=== PATIENT | female | born 1950 | race American Indian/Alaskan Native ===

== ENCOUNTER 2016-08-11 12:43 | Emergency (ER) | payer MEDICARE, OTHER ==
--- NOTE | 2016-08-11 15:04 | Cat Scan Report ---
CT HEAD WITHOUT CONTRAST INDICATION: Fall, LOC. COMPARISON: None similar. FINDINGS: Noncontrast head CT demonstrates symmetric, age-appropriate ventricles and sulci without acute or recent infarct, hemorrhage, mass effect or midline shift. No abnormal extra-axial fluid collections. Mild periventricular and few white matter hypodense small vessel ischemic disease. Posterior fossa structures and basilar cisterns appear within normal limits. Bilateral cataract surgery. Partially empty sella. Left ethmoid air cell opacification anteriorly. Clear remainder imaged paranasal sinuses and mastoid air cells. Intact calvarium. High scalp hematoma/soft tissue swelling noted towards the vertex posteriorly. Few radiopaque dental material incidentally noted. CONCLUSION: No acute intracranial CT abnormality with various incidental findings, as described. Thank you for the opportunity to participate in this patient's care.
--- NOTE | 2016-08-11 15:09 | Cat Scan Report ---
CT CERVICAL SPINE WITHOUT CONTRAST INDICATION: Fall, LOC. COMPARISON: None similar. FINDINGS: Noncontrast axial, sagittal and coronal CT reconstructions of the cervical spine demonstrate normal visualized intracranial appearance. Streak artifact from few radiopaque dental material noted. Assessment of the spinal canal from C4 inferiorly also compromised due to artifact from shoulder soft tissues. Clear included sinuses and mastoid air cells. Symmetric occipital condyles. Normal anterior and posterior arches of C1. Intact craniocervical articulation with normal predental space, prevertebral soft tissues, vertebral body stature, alignment and posterior elements. Mild degenerative spurring and slight disc narrowing at few levels. No large disc protrusion at any level suspected. Normal included thyroid. Clear visualized lung apices. CONCLUSION: No acute cervical spine CT abnormality with few incidental findings, as above. A small cervical rib on the right also incidentally noted. Please correlate. Thank you for the opportunity to participate in this patient's care.
[2016-08-11] MEDS ORDERED: NORCO 5/325 ONE (15:18)
[2016-08-11] MEDS ORDERED: NORCO 5/325 PO ONE (15:20)
[2016-08-11 15:36] VITALS: BP 160/75
--- NOTE | 2016-08-11 15:43 | Emergency Department Report ---
HPI - General Chief Complaint: Fall Time Seen by Provider: 08/11/16 13:22 - HPI HPI: Chief complaint: Fall head injury HPI: Patient states she was in a fast food restaurant and the floor was slippery and she grabbed Herself on the chair and then woke up on the floor. Bystanders states she was out for approximately 60 seconds. Patient has a hematoma to the back of her scalp where she hit the back of her head. Patient denies any neck pain. No numbness or weakness. Mode of arrival: EMS Source: Patient Began: Occurred prior to admission Duration: 60 seconds Context: Patient with a history of arthritis, congestive heart failure, reactive airway disease, diabetes type 2, GERD and hypertension. Quality: Dull Severity: out of 10 Improved with: Nothing Worsened with: Scalp is tender to palpation Associated signs and symptoms: No nausea vomiting. Headache. ED Past Medical Hx - Past Medical History Hx Hypertension: Yes Hx Congestive Heart Failure: Yes Hx Diabetes: Yes (II) Hx GERD: Yes Hx Arthritis: Yes (spine) Hx COPD: Yes Additional medical history: High cholesterol, gout - Surgical History Additional Surgical History: Vaginal hysterectomy, Lysis of adhesions x 5, Left breast biopsy 2002 - Social History Smoking Status: Never Smoker Substance Use Type: None - Medications Home Medications: Home Medications Medication Instructions Recorded Confirmed Last Taken Type Carvedilol [Coreg] 25 mg PO BID 10/02/13 06/02/16 06/01/16 History Simvastatin [Zocor TAB] 40 mg PO ONCE 10/02/13 06/02/16 06/01/16 History Spironolactone [Aldactone] 25 mg PO ONCE 10/02/13 06/02/16 06/01/16 History hydrALAZINE [Apresoline TAB] 25 mg PO TID 10/02/13 06/02/16 06/01/16 History Bimatoprost [Lumigan 0.01%] 1 drop OU DAILY 06/02/16 06/02/16 06/01/16 History prednisoLONE ACETATE 1% [Pred 1 drop OD BID 06/02/16 06/02/16 06/01/16 History Forte 1%] traMADol [Ultram 50 MG tab] 50 mg PO Q6HR PRN #14 tablet 08/11/16 Unknown Rx ED Review of Systems ROS: Stated complaint: FELL FROM STANDING POSITION Other details as noted in HPI ROS Constitutional: No fever ENT: No uri symptoms Cardiovascular: No chest pain Respiratory: No sob or cough GI: No nausea vomiting or diarrhea : No dysuria frequency or urgency, Skin: No rash Neuro: No focal weakness or numbness Psych: No depression Bon/lymph: No edema Physical Exam - Physical Exam Vital Signs: Vital Signs 08/11/16 08/11/16 13:03 13:11 Temperature 98.3 F Pulse Rate 73 Respiratory 18 18 Rate Blood Pressure 161/66 O2 Sat by Pulse 99 98 Oximetry Physical Exam: GENERAL: The patient is well-developed well-nourished . HEENT: Normocephalic. Palpable hematoma in the posterior scalp. No bony deformity. Extraocular motions are intact. Patient has moist mucous membranes. TMs within normal limits. NECK: Supple. No meningitic signs are noted. There is no adenopathy noted. CHEST/LUNGS: Clear to auscultation. There is no respiratory distress noted. HEART/CARDIOVASCULAR: Regular. There is no tachycardia. There is no gallop rub or murmur. ABDOMEN: Abdomen is soft, nontender. Patient has normal bowel sounds. There is no abdominal distention. SKIN: There is no rash. There is no edema. There is no diaphoresis. NEURO: The patient is awake, alert, and oriented. The patient is cooperative. The patient has no focal neurologic deficits. The patient has normal speech. MUSCULOSKELETAL: There is no tenderness or deformity. There is no limitation range of motion. There is no evidence of acute injury. ED Course Vital Signs 08/11/16 08/11/16 13:03 13:11 Temperature 98.3 F Pulse Rate 73 Respiratory 18 18 Rate Blood Pressure 161/66 O2 Sat by Pulse 99 98 Oximetry - Reevaluation(s) Reevaluation #1: 08/11/16 Patient medicated with hydrocodone 5 by mouth here in the emergency department. ED Medical Decision Making - Radiology Data Radiology results: report reviewed (CT head and C-spine showed no acute process except for scalp hematoma.) Critical care attestation.: If time is entered above; I have spent that time in minutes in the direct care of this critically ill patient, excluding procedure time. ED Disposition Clinical Impression: Cerebral concussion Qualifiers: Encounter type: initial encounter Loss of consciousness presence/duration: with LOC of 30 min or less Qualified Code(s): S06.0X1A - Concussion with loss of consciousness of 30 minutes or less, initial encounter Disposition: DISCHARGED TO HOME OR SELFCARE Is pt being admited?: No Does the pt Need Aspirin: No Condition: Stable Instructions: Concussion (ED), Scalp Contusion in Adults (ED) Prescriptions: traMADol [Ultram 50 MG tab] 50 mg PO Q6HR PRN #14 tablet PRN Reason: Pain Referrals: PRIMARY CARE, [Primary Care Provider] - 3-5 Days Time of Disposition: 15:39
== END 2016-08-11 17:10 | disposition home or self-care (01) ==
LOC: ED 12:43
DX: S06.0X1A Concussion with loss of consciousness of 30 minutes or less, initial encounter (principal); I10 Essential (primary) hypertension; I50.9 Heart failure, unspecified; E11.9 Type 2 diabetes mellitus without complications; K21.9 Gastro-esophageal reflux disease without esophagitis; J44.9 Chronic obstructive pulmonary disease, unspecified; E78.00 Pure hypercholesterolemia, unspecified; M10.9 Gout, unspecified; M47.9 Spondylosis, unspecified; Z90.710 Acquired absence of both cervix and uterus; Z79.899 Other long term (current) drug therapy; Z98.890 Other specified postprocedural states; Z88.8 Allergy status to other drugs, medicaments and biological substances; W01.0XXA Fall on same level from slipping, tripping and stumbling without subsequent striking against object, initial encounter; Y93.89 Activity, other specified; Y99.8 Other external cause status; Y92.511 Restaurant or cafe as the place of occurrence of the external cause
CPT/HCPCS: 70450; 72125

== ENCOUNTER 2016-08-12 02:55 | Emergency (ER) | payer MEDICARE, OTHER ==
--- NOTE | 2016-08-12 08:59 | Emergency Department Report ---
HPI - General Chief Complaint: Headache Time Seen by Provider: 08/12/16 08:06 - HPI HPI: This is a 66-year-old Afro-[place]an female presents to the emergency department with complaint of dizziness and feeling like she is going to pass out. The patient was seen here yesterday at [facility] post ground-level fall after she slipped on a wet floor at a fast food restaurant and hit her head. Allegedly there was some loss of consciousness of the patient says she does not remember much until she was on the way to the hospital with EMS. At that time she had a CT of the head and cervical spine. She was diagnosed with a scalp contusion and concussion. Patient says that she tried to go home and rest but every time she turns her head or moves around that she feels like she is going to pass out. She had been taking some tramadol for her discomfort that was prescribed yesterday. She has a past nuchal history of hypertension, prediabetes and elevated cholesterol. Her primary care doctor is at [facility]. No recent travel or sick contacts at home. She denies any vision change, fever, slurred speech or any neurological deficits. ED Past Medical Hx - Past Medical History Previous Medical History?: Yes Hx Hypertension: Yes Hx Congestive Heart Failure: Yes Hx Diabetes: Yes (Not taking meds at present) Hx GERD: Yes Hx Arthritis: Yes (spine) Hx COPD: Yes Additional medical history: High cholesterol, gout - Surgical History Past Surgical History?: Yes Additional Surgical History: Vaginal hysterectomy, Lysis of adhesions x 5, Left breast biopsy 2002 - Social History Smoking Status: Never Smoker Substance Use Type: None - Medications Home Medications: Home Medications Medication Instructions Recorded Confirmed Last Taken Type Carvedilol [Coreg] 25 mg PO BID 10/02/13 06/02/16 06/01/16 History Simvastatin [Zocor TAB] 40 mg PO ONCE 10/02/13 06/02/16 06/01/16 History Spironolactone [Aldactone] 25 mg PO ONCE 10/02/13 06/02/16 06/01/16 History hydrALAZINE [Apresoline TAB] 25 mg PO TID 10/02/13 06/02/16 06/01/16 History Bimatoprost [Lumigan 0.01%] 1 drop OU DAILY 06/02/16 06/02/16 06/01/16 History prednisoLONE ACETATE 1% [Pred 1 drop OD BID 06/02/16 06/02/16 06/01/16 History Forte 1%] traMADol [Ultram 50 MG tab] 50 mg PO Q6HR PRN #14 tablet 08/11/16 Unknown Rx Meclizine [Antivert] 25 mg PO TID PRN #14 tablet 08/12/16 Unknown Rx ED Review of Systems ROS: Stated complaint: HEAD LAC Other details as noted in HPI Comment: All other systems reviewed and negative Constitutional: denies: chills, fever Eyes: denies: eye pain, eye discharge, vision change ENT: as per HPI Respiratory: denies: cough, shortness of breath, wheezing Cardiovascular: denies: chest pain, palpitations Genitourinary: denies: urgency, dysuria, discharge Musculoskeletal: denies: back pain, joint swelling, arthralgia Skin: denies: rash, lesions Neurological: headache, vertigo, other (Dizziness). denies: weakness, numbness , paresthesias Physical Exam - Physical Exam Vital Signs: Vital Signs 08/12/16 03:21 Temperature 98.5 F Pulse Rate 84 Respiratory 18 Rate Blood Pressure 145/82 O2 Sat by Pulse 98 Oximetry Physical Exam: GENERAL: The patient is well-developed well-nourished. HEENT: Normocephalic. Extraocular motions are intact but worsens the patient's symptoms. Patient has moist mucous membranes. Pupils equal reactive to light bilaterally. There is some fatigable horizontal nystagmus. NECK: Supple. Trachea is midline. CHEST/LUNGS: Clear to auscultation. There is no respiratory distress noted. HEART/CARDIOVASCULAR: Regular. There is no tachycardia. There is no gallop rub or murmur. ABDOMEN: Abdomen is soft, nontender. Patient has normal bowel sounds. There is no abdominal distention. SKIN: There is no rash. There is no edema. There is no diaphoresis. NEURO: The patient is awake, alert, and oriented. The patient is cooperative. The patient has no focal neurologic deficits. The patient has normal speech. Cranial nerves II through XII grossly intact. No dysmetria. No pronator drift. MUSCULOSKELETAL: There is no tenderness or deformity. There is no limitation range of motion. There is no evidence of acute injury. Muscle strength 5 out of 5 upper and lower extremity bilaterally. ED Course Vital Signs 08/12/16 03:21 Temperature 98.5 F Pulse Rate 84 Respiratory 18 Rate Blood Pressure 145/82 O2 Sat by Pulse 98 Oximetry ED Medical Decision Making - Lab Data Result diagrams: 08/12/16 09:00 08/12/16 09:00 - EKG Data -: EKG Interpreted by Me EKG shows normal: sinus rhythm, axis, intervals, QRS complexes Rate: normal - EKG Data When compared to previous EKG there are: no significant change Interpretation: unchanged when compared t (05/31/16), other - Medical Decision Making This is a 66-year-old Afro-S[place]an female presents emergency Department with what appears to be some nonspecific dizziness and vertigo as part of a postconcussive syndrome. Patient was seen here yesterday and had a CT of the head that was negative for any bleed, shift, mass or fracture at that time. She came back to be seen after she was having the dizziness and vertigo like symptoms worsen with certain movements and moving her head. There is been no focal, motor or sensory deficits. Cranial nerves are intact. Patient did have some worsening of her dizziness with extraocular motion testing and some fatigable horizontal nystagmus. For this reason the patient was given some Antivert. An EKG was checked that was unchanged from her previous EKG in May 2016 and did not show any signs of ST elevation MS or dysrhythmia. Patient's labs are unremarkable including no leukocytosis, electrolyte abnormalities, renal insufficiency or glucose abnormalities. Patient was reevaluated and her symptoms have greatly improved if not resolved. She will be given a referral for a local neurologist, as well as the encouragement to follow-up with her primary care doctor at [facility], and she will return to the ER with any worsening of her symptoms or any acute distress. - Differential Diagnosis postconcussive syndrome, vertigo, TIA, Mnire's disease Critical Care Time: No Critical care attestation.: If time is entered above; I have spent that time in minutes in the direct care of this critically ill patient, excluding procedure time. ED Disposition Clinical Impression: Postconcussive syndrome, Vertigo, Dizziness Disposition: DISCHARGED TO HOME OR SELFCARE Is pt being admited?: No Does the pt Need Aspirin: No Condition: Stable Instructions: Post Concussion Syndrome (ED), Vertigo (ED), Dizziness (ED) Additional Instructions: Please follow-up with your primary care doctor in the next few days. I have also given you a referral for a local neurologist to follow-up regarding your postconcussive syndrome and your dizziness. Return to the emergency department with any worsening of your symptoms or any acute distress. Prescriptions: Meclizine [Antivert] 25 mg PO TID PRN #14 tablet PRN Reason: Vertigo Referrals: PRIMARY CAREMD [Primary Care Provider] - 3-5 Days MUSA BAJWA MD [Staff Physician] - 3-5 Days Time of Disposition: 10:49
[2016-08-12] MEDS: ANTIVERT PO ONE (09:00)
[2016-08-12 09:11] LABS: Basophils % (Auto) 0.2 % (0.0-1.8); Eosinophils % (Auto) 1.6 % (0.0-4.3); Hematocrit 37.8 % (30.3-42.9); Hemoglobin 12.1 gm/dl (10.1-14.3); Mean Corpuscular HGB Conc 32 % (30-34); Mean Corpuscular Volume 81 fl (79-97); Platelet Count 184 K/mm3 (140-440); Red Blood Count 4.68 M/mm3 (3.65-5.03); Red Cell Distribution Width 16.3 % (13.2-15.2); White Blood Count 7.6 K/mm3 (4.5-11.0)
[2016-08-12 09:12] LABS: Mean Corpuscular Hemoglobin 26 pg (28-32)
[2016-08-12 09:49] LABS: Anion Gap 18 mmol/L; BUN/Creatinine Ratio 16.66; Blood Urea Nitrogen 15 mg/dL (7-17); Calcium 9.6 mg/dL (8.4-10.2); Carbon Dioxide 27 mmol/L (22-30); Chloride 100.7 mmol/L (98-107); Glucose 121 mg/dL (65-100); Potassium 4.4 mmol/L (3.6-5.0); Sodium 141 mmol/L (137-145)
[2016-08-12 10:54] VITALS: BP 134/88
== END 2016-08-12 10:54 | disposition home or self-care (01) ==
LOC: ED 02:55
DX: F07.81 Postconcussional syndrome (principal); R42 Dizziness and giddiness; I10 Essential (primary) hypertension; I50.9 Heart failure, unspecified; E11.9 Type 2 diabetes mellitus without complications; K21.9 Gastro-esophageal reflux disease without esophagitis; M19.90 Unspecified osteoarthritis, unspecified site; J44.9 Chronic obstructive pulmonary disease, unspecified; E78.00 Pure hypercholesterolemia, unspecified; M10.9 Gout, unspecified; Z90.710 Acquired absence of both cervix and uterus
CPT/HCPCS: 36415; 80048; 84443; 84484; 85025; 93005; 93010; 99284

== ENCOUNTER 2020-01-23 21:20 | Emergency (ER) | payer MEDICARE ==
[2020-01-23 23:37] VITALS: BP 163/75
[2020-01-24] MEDS ORDERED: KETOROLAC 30 MG/1 ML INJ IM ONE (04:46)
--- NOTE | 2020-01-24 04:50 | Emergency Department Report ---
ED Lower Extremity HPI - General Chief Complaint: Extremity Injury, Lower Stated Complaint: RT KNEE PAIN/SWELLING Time Seen by Provider: 01/24/20 04:39 Source: patient Mode of arrival: Ambulatory Limitations: Physical Limitation - History of Present Illness Initial Comments: This is a 69-year-old female with history of hypertension hyperlipidemia who pr esents with bilateral knee pain for several days. Pain was worse after a more strenuous day on the job. 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 She awakened the next day with severe right lateral knee pain. She also had left lateral knee pain. Several years ago she required injection in her knee for relief of pain. She wanted to ensure that she did not have gout. No direct injury. Denies fever. Denies recent infection. No previous history of gout. MD Complaint: other (Bilateral knee pain) -: days(s) (2 days) Injury: Knee: Right, Left Severity: moderate Worsens With: weight bearing Context: other (Increase physical activity) Associated Symptoms: swelling - Related Data Home Medications Medication Instructions Recorded Confirmed Last Taken Simvastatin (Nf) [Zocor TAB] 40 mg PO ONCE 10/02/13 06/02/16 06/01/16 Spironolactone [Aldactone] 25 mg PO ONCE 10/02/13 06/02/16 06/01/16 carvediloL [Coreg] 25 mg PO BID 10/02/13 06/02/16 06/01/16 hydrALAZINE [Apresoline TAB] 25 mg PO TID 10/02/13 06/02/16 06/01/16 Bimatoprost [Lumigan 0.01%] 1 drop OU DAILY 06/02/16 06/02/16 06/01/16 prednisoLONE ACETATE 1% [Pred 1 drop OD BID 06/02/16 06/02/16 06/01/16 Forte 1%] Previous Rx's Medication Instructions Recorded Last Taken Type traMADoL [Ultram 50 MG tab] 50 mg PO Q6HR PRN #14 tablet 08/11/16 Unknown Rx Meclizine [Antivert] 25 mg PO TID PRN #14 tablet 08/12/16 Unknown Rx traMADoL [Ultram 50 MG tab] 50 mg PO Q6HR PRN #15 tablet 07/21/20 Unknown Rx Allergies Allergy/AdvReac Type Severity Reaction Status Date / Time lisinopril Allergy Swelling Verified 06/02/16 07:10 metformin Allergy Unknown Verified 01/23/20 23:38 ED Review of Systems ROS: Stated complaint: RT KNEE PAIN/SWELLING Other details as noted in HPI Constitutional: denies: fever, malaise Respiratory: denies: cough Cardiovascular: denies: chest pain Gastrointestinal: denies: abdominal pain, nausea Musculoskeletal: joint swelling, arthralgia Skin: denies: rash, lesions ED Past Medical Hx - Past Medical History Previous Medical History?: Yes Hx Hypertension: Yes Hx Congestive Heart Failure: Yes Hx Diabetes: Yes (not on meds at present due lower A1C) Hx GERD: Yes Hx Arthritis: Yes (spine) Hx COPD: Yes Additional medical history: High cholesterol, gout - Surgical History Past Surgical History?: Yes Additional Surgical History: Vaginal hysterectomy, Lysis of adhesions x 5, Left breast biopsy 2002 - Social History Smoking Status: Never Smoker Substance Use Type: None - Medications Home Medications: Home Medications Medication Instructions Recorded Confirmed Last Taken Type Simvastatin (Nf) [Zocor TAB] 40 mg PO ONCE 10/02/13 06/02/16 06/01/16 History Spironolactone [Aldactone] 25 mg PO ONCE 10/02/13 06/02/16 06/01/16 History carvediloL [Coreg] 25 mg PO BID 10/02/13 06/02/16 06/01/16 History hydrALAZINE [Apresoline TAB] 25 mg PO TID 10/02/13 06/02/16 06/01/16 History Bimatoprost [Lumigan 0.01%] 1 drop OU DAILY 06/02/16 06/02/16 06/01/16 History prednisoLONE ACETATE 1% [Pred 1 drop OD BID 06/02/16 06/02/16 06/01/16 History Forte 1%] traMADoL [Ultram 50 MG tab] 50 mg PO Q6HR PRN #14 tablet 08/11/16 Unknown Rx Meclizine [Antivert] 25 mg PO TID PRN #14 tablet 08/12/16 Unknown Rx traMADoL [Ultram 50 MG tab] 50 mg PO Q6HR PRN #15 tablet 01/24/20 Unknown Rx ED Physical Exam - General Limitations: Physical Limitation General appearance: alert, in no apparent distress - Head Head exam: Present: atraumatic, normocephalic - Eye Eye exam: Present: normal appearance. Absent: scleral icterus, conjunctival injection - ENT ENT exam: Present: mucous membranes moist - Neck Neck exam: Present: normal inspection, full ROM - Respiratory Respiratory exam: Absent: respiratory distress - Expanded Lower Extremity Exam Left Hip exam: Present: normal inspection, full ROM Upper Leg exam: Present: normal inspection Knee exam: Present: tenderness, swelling. Absent: abrasion, laceration, ecchymosis, deformity, crepidus, dislocation, erythema, effusion, pain/laxity with valgus, pain/laxity with varus Lower Leg exam: Present: normal inspection, full ROM. Absent: tenderness Ankle exam: Present: normal inspection, full ROM. Absent: tenderness, swelling Foot/Toe exam: Present: normal inspection, full ROM Right Hip exam: Present: normal inspection, full ROM Upper Leg exam: Present: normal inspection, full ROM Knee exam: Present: full ROM, tenderness, swelling. Absent: abrasion, laceration, ecchymosis, deformity, crepidus, dislocation, erythema, pain/laxity with valgus, pain/laxity with varus Lower Leg exam: Present: normal inspection, full ROM. Absent: tenderness, swelling, abrasion Ankle exam: Present: normal inspection, full ROM Foot/Toe exam: Present: normal inspection, full ROM ED Course Vital Signs 01/23/20 23:34 Temperature 98.7 F Pulse Rate 76 Respiratory 16 Rate Blood Pressure 163/75 O2 Sat by Pulse 99 Oximetry ED Lower Extremity MDM - Radiology Data Radiology results: report reviewed, image reviewed Bilateral knee radiographs: Mild tricompartmental degenerative osteoarthrosis of both knees left worse than right no fracture appreciated no significant knee effusion Radiologist impression - Medical Decision Making This is a 69-year-old female who presents with atraumatic bilateral knee swelling. Clinical impression DJD osteoarthritis. Prescribed tramadol referred to orthopedic surgeon Critical care attestation.: If time is entered above; I have spent that time in minutes in the direct care of this critically ill patient, excluding procedure time. ED Disposition Clinical Impression: Degenerative joint disease of right knee, Left knee DJD Disposition: TO HOME OR SELFCARE Is pt being admited?: No Does the pt Need Aspirin: No Condition: Stable Instructions: Osteoarthritis (ED) Prescriptions: traMADoL [Ultram 50 MG tab] 50 mg PO Q6HR PRN #15 tablet PRN Reason: Pain Referrals: ADELITA ECHOLS MD [Staff Physician] - 3-5 Days Forms: Work/School Release Form(ED)
--- NOTE | 2020-01-24 05:49 | XRay Report ---
Knee bilateral 6 views INDICATION: Bilateral knee pain IMPRESSION: Mild tricompartmental degenerative osteoarthrosis of both knees, left worse than right. N o fracture appreciated. No significant knee effusion. Signer Name: Ever Ruiz MD Signed: 01/24/2020 5:45 AM Workstation Name: [id number]
== END 2020-01-24 06:41 | disposition home or self-care (01) ==
LOC: ED 21:20
DX: M17.0 Bilateral primary osteoarthritis of knee (principal); I11.0 Hypertensive heart disease with heart failure; I50.9 Heart failure, unspecified; I10 Essential (primary) hypertension; M13.88 Other specified arthritis, other site; K21.9 Gastro-esophageal reflux disease without esophagitis; J44.9 Chronic obstructive pulmonary disease, unspecified; E78.00 Pure hypercholesterolemia, unspecified; M10.9 Gout, unspecified; Z90.710 Acquired absence of both cervix and uterus; Z79.899 Other long term (current) drug therapy; Z88.6 Allergy status to analgesic agent
CPT/HCPCS: 73562; 96372; 99283; J1885

== ENCOUNTER 2021-04-07 18:24 | Emergency (ER) | payer MEDICARE ==
[2021-04-07 18:46] VITALS: BP 151/81
--- NOTE | 2021-04-07 19:31 | Emergency Department Report ---
ED General Adult HPI - General Chief complaint: Skin/Abscess/Foreign Body Stated complaint: POSS SPIDER BITE/REDNESS/ITCH/PAIN Source: patient Mode of arrival: Ambulatory Limitations: No Limitations - History of Present Illness Initial comments: Patient is a 70-year-old -[place] female with a history of [id number] diabetes, CHF, osteoarthritis, GERD, COPD, hyperlipidemia and hypertension who presents to the ED with acute onset persistent itchy erythematous maculopapular painful rash on right upper quadrant abdominal area for the last 2 days after being bitten by unknown insect 2 days ago. Patient states that the area was initially very warm, severely painful and itchy 24 hours ago and she decided come to the ED today for evaluation thinking that it m ay have been a spider bite although she did not identify or see any insect biting her at the time. 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 Patient denies swollen lips or tongue, dysphagia, dysphonia, nausea and vomiting, diarrhea, abdominal pain, chest pain or shortness of breath, fever, chills, dizziness or syncope. MD Complaint: Itchy erythematous painful rash on RUQ abdominal area -: Sudden, days(s) (2) Location: abdomen (RUQ abdominal area) Radiation: non-radiation Severity scale (0 -10): 5 Quality: burning, aching, sharp, other (Itchy) Consistency: constant Improves with: none Worsens with: none Associated Symptoms: denies other symptoms, malaise, rash (Erythematous maculopapular rash with localized pain and mild swelling on right upper quadrant abdominal.). denies: confusion, chest pain, cough, diaphoresis, fever/chills, headaches, loss of appetite, nausea/vomiting, seizure, shortness of breath, syncope, weakness Treatments Prior to Arrival: none - Related Data Home Medications Medication Instructions Recorded Confirmed Last Taken Simvastatin (Nf) [Zocor TAB] 40 mg PO ONCE 10/02/13 06/02/16 06/01/16 Spironolactone [Aldactone] 25 mg PO ONCE 10/02/13 06/02/16 06/01/16 carvediloL [Coreg] 25 mg PO BID 10/02/13 06/02/16 06/01/16 hydrALAZINE [Apresoline TAB] 25 mg PO TID 10/02/13 06/02/16 06/01/16 Bimatoprost [Lumigan 0.01%] 1 drop OU DAILY 06/02/16 06/02/16 06/01/16 prednisoLONE ACETATE 1% [Pred 1 drop OD BID 06/02/16 06/02/16 06/01/16 Forte 1%] Previous Rx's Medication Instructions Recorded Last Taken Type traMADoL [Ultram 50 MG tab] 50 mg PO Q6HR PRN #14 tablet 08/11/16 Unknown Rx Meclizine [Antivert] 25 mg PO TID PRN #14 tablet 08/12/16 Unknown Rx traMADoL [Ultram 50 MG tab] 50 mg PO Q6HR PRN #15 tablet 01/24/20 Unknown Rx Ibuprofen [Motrin] 800 mg PO Q8HR PRN #20 tablet 04/07/21 Unknown Rx Sulfamethoxazole/Trimethoprim 1 each PO Q12H #20 tablet 04/07/21 Unknown Rx [Bactrim DS TAB] predniSONE [Deltasone] 40 mg PO QDAY #10 tab 04/07/21 Unknown Rx Allergies Allergy/AdvReac Type Severity Reaction Status Date / Time lisinopril Allergy Swelling Verified 06/02/16 07:10 metformin Allergy Unknown Verified 01/23/20 23:38 ED Review of Systems ROS: Stated complaint: POSS SPIDER BITE/REDNESS/ITCH/PAIN Other details as noted in HPI Constitutional: denies: chills, fever Eyes: denies: eye pain, eye discharge, vision change ENT: denies: ear pain, throat pain Respiratory: denies: cough, shortness of breath, wheezing Cardiovascular: denies: chest pain, palpitations Endocrine: no symptoms reported Gastrointestinal: denies: abdominal pain, nausea, diarrhea Genitourinary: denies: urgency, dysuria, discharge Musculoskeletal: denies: back pain, joint swelling, arthralgia Skin: rash (Mild erythematous maculopapular itchy painful mildly swollen rash on right upper quadrant area of the abdomen), change in color, pruritus. denies: lesions Neurological: denies: headache, weakness, paresthesias Psychiatric: denies: anxiety, depression Hematological/Lymphatic: denies: easy bleeding, easy bruising ED Past Medical Hx - Past Medical History Previous Medical History?: Yes Hx Hypertension: Yes Hx Congestive Heart Failure: Yes Hx Diabetes: Yes (not on meds at present due lower A1C) Hx GERD: Yes Hx Arthritis: Yes (spine) Hx COPD: Yes Additional medical history: High cholesterol, gout - Surgical History Past Surgical History?: Yes Additional Surgical History: Vaginal hysterectomy, Lysis of adhesions x 5, Left breast biopsy 2002, fistula sx - Social History Smoking Status: Never Smoker Substance Use Type: None - Medications Home Medications: Home Medications Medication Instructions Recorded Confirmed Last Taken Type Simvastatin (Nf) [Zocor TAB] 40 mg PO ONCE 10/02/13 06/02/16 06/01/16 History Spironolactone [Aldactone] 25 mg PO ONCE 10/02/13 06/02/16 06/01/16 History carvediloL [Coreg] 25 mg PO BID 10/02/13 06/02/16 06/01/16 History hydrALAZINE [Apresoline TAB] 25 mg PO TID 10/02/13 06/02/16 06/01/16 History Bimatoprost [Lumigan 0.01%] 1 drop OU DAILY 06/02/16 06/02/16 06/01/16 History prednisoLONE ACETATE 1% [Pred 1 drop OD BID 06/02/16 06/02/16 06/01/16 History Forte 1%] traMADoL [Ultram 50 MG tab] 50 mg PO Q6HR PRN #14 tablet 08/11/16 Unknown Rx Meclizine [Antivert] 25 mg PO TID PRN #14 tablet 08/12/16 Unknown Rx traMADoL [Ultram 50 MG tab] 50 mg PO Q6HR PRN #15 tablet 01/24/20 Unknown Rx Ibuprofen [Motrin] 800 mg PO Q8HR PRN #20 tablet 04/07/21 Unknown Rx Sulfamethoxazole/Trimethoprim 1 each PO Q12H #20 tablet 04/07/21 Unknown Rx [Bactrim DS TAB] predniSONE [Deltasone] 40 mg PO QDAY #10 tab 04/07/21 Unknown Rx ED Physical Exam - General Limitations: No Limitations General appearance: alert, in no apparent distress - Head Head exam: Present: atraumatic, normocephalic, normal inspection - Eye Eye exam: Present: normal appearance, PERRL, EOMI Pupils: Present: normal accommodation - ENT ENT exam: Present: normal exam, normal orophraynx, mucous membranes moist, TM's normal bilaterally, normal external ear exam - Neck Neck exam: Present: normal inspection, full ROM - Respiratory Respiratory exam: Present: normal lung sounds bilaterally. Absent: respiratory distress, wheezes, rales, chest wall tenderness, decreased breath sounds - Cardiovascular Cardiovascular Exam: Present: regular rate, normal rhythm, normal heart sounds. Absent: systolic murmur, diastolic murmur, rubs, gallop - GI/Abdominal GI/Abdominal exam: Present: soft, tenderness (Mildly tender right upper quadrant area due to erythematous maculopapular nonfluctuant rash), normal bowel sounds. Absent: distended, guarding, rebound, hyperactive bowel sounds, hypoactive bowel sounds, organomegaly - Extremities Exam Extremities exam: Present: normal inspection, full ROM, normal capillary refill - Back Exam Back exam: Present: normal inspection, full ROM. Absent: tenderness, CVA tenderness (R), CVA tenderness (L), muscle spasm, paraspinal tenderness, vertebral tenderness - Neurological Exam Neurological exam: Present: alert, oriented X3, CN II-XII intact, normal gait, reflexes normal - Psychiatric Psychiatric exam: Present: normal affect, normal mood - Skin Skin exam: Present: warm, dry, intact, normal color, rash (Mild erythematous maculopapular nonfluctuant rash with localized mild tenderness on right upper quadrant abdominal area), erythema ED Course Vital Signs 04/07/21 18:40 Temperature 98.4 F Pulse Rate 76 Respiratory 18 Rate Blood Pressure 151/81 [Right] O2 Sat by Pulse 99 Oximetry ED Medical Decision Making - Medical Decision Making This is a 70-year-old -[place] female with a history of [id number] diabetes, CHF, osteoarthritis, GERD, COPD, hyperlipidemia and hypertension who presents to the ED with acute onset persistent itchy erythematous maculopapular painful rash on right upper quadrant abdominal area for the last 2 days after being bitten by unknown insect 2 days ago. Patient states that the area was initially very warm, severely painful and itchy 24 darren rs ago and she decided come to the ED today for evaluation thinking that it may have been a spider bite although she did not identify or see any insect biting her at the time. 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 In the ED, patient is alert and oriented x3 and is not in any distress. Physical exam confirms mild erythematous maculopapular nonfluctuant rash on right upper quadrant area with mild localized tenderness. Patient was therefore discharged home on antibiotics and advised to follow-up with her primary care physician in 7 to 10 days for reevaluation or return to the ED immediately if symptoms get worse - Differential Diagnosis Cellulitis; cutaneous abscess; insect bite reaction; folliculitis Critical care attestation.: If time is entered above; I have spent that time in minutes in the direct care of this critically ill patient, excluding procedure time. ED Disposition Clinical Impression: Cellulitis of right abdominal wall, Allergic reaction to insect bite Disposition: HOME / SELF CARE / HOMELESS Is pt being admited?: No Does the pt Need Aspirin: No Condition: Stable Instructions: Allergies, Adult, [id number], Cellulitis, Adult, [id number] Additional Instructions: Take medication with food, drink plenty of fluids and follow-up with your primary care physician in 5 to 7 days for reevaluation. Return to the ED immediately if symptoms get worse. Prescriptions: Sulfamethoxazole/Trimethoprim [Bactrim DS TAB] 1 each PO Q12H #20 tablet predniSONE [Deltasone] 40 mg PO QDAY #10 tab Ibuprofen [Motrin] 800 mg PO Q8HR PRN #20 tablet PRN Reason: Pain , Severe (7-10) Referrals: ROSEANNE OLGUIN MD [Primary Care Provider] - 7-10 days Time of Disposition: 19:34 Print Language: YAKUT
== END 2021-04-07 20:03 | disposition home or self-care (01) ==
LOC: ED 18:24
DX: L03.311 Cellulitis of abdominal wall (principal); T63.481A Toxic effect of venom of other arthropod, accidental (unintentional), initial encounter; Y92.89 Other specified places as the place of occurrence of the external cause; I10 Essential (primary) hypertension; Z88.8 Allergy status to other drugs, medicaments and biological substances; E11.8 Type 2 diabetes mellitus with unspecified complications; Z90.710 Acquired absence of both cervix and uterus; Z86.79 Personal history of other diseases of the circulatory system
CPT/HCPCS: 99282